=== PATIENT | female | born 1990 | race Two or more races ===

== ENCOUNTER 2019-05-05 20:18 | Emergency (ER) | payer OTHER ==
[~2019-05-05] VITALS: Ht 157.5 cm; Wt 79.4 kg
--- NOTE | 2019-05-05 20:22 | NUR ---
pt bibfamily for l side cp; pt aaox4, -sob, nad noted, vss, pt to bed 5, pending md figueroa
[2019-05-05 20:58] LABS: BASOPHILS % (AUTO) 0.4 % (0.0-2.0); EOSINOPHILS % (AUTO) 0.2 % (0.0-6.0); HEMATOCRIT 43 % (33-45); HEMOGLOBIN 14.6 g/dL (11.5-14.8); LYMPHOCYTES # (AUTO) 2.4 /CMM (0.8-4.8); LYMPHOCYTES % (AUTO) 23.7 % (20.0-44.0); MEAN CORPUSCULAR HGB CONC 34 g/dl (31.0-36.0); MEAN CORPUSCULAR VOLUME 82 fL (82-100); MONOCYTES # (AUTO) 0.5 /CMM (0.1-1.30); MONOCYTES % (AUTO) 5.2 % (2.0-12.0); NEUTROPHILS # (AUTO) 7.2 /CMM (1.8-8.9); NEUTROPHILS % (AUTO) 70.5 % (43.0-81.0); PLATELET COUNT (AUTO) 235 /CMM (150-450); RED BLOOD CELL COUNT(AUTO) 5.27 MIL/uL (4.0-5.2); WHITE BLOOD COUNT (AUTO) 10.2 K/uL (4.3-11.0)
[2019-05-05] MEDS ORDERED: IV NS 0.9% 500 ML BAG IV ONE (21:00)
[2019-05-05 21:07] LABS: CALCIUM, SERUM 9.7 mg/dL (8.5-10.1); CARBON DIOXIDE 29 mmol/L (21-32); CHLORIDE 103 mmol/L (98-107); CREATININE 0.7 mg/dL (0.6-1.3); GLUCOSE 106 mg/dL (74-106); POTASSIUM 3.6 mmol/L (3.5-5.1); SODIUM SERUM 142 mmol/L (136-145); UREA NITROGEN, BLOOD 5 mg/dL (7-18)
[2019-05-05 21:19] LABS: B-TYPE NATRIURETIC PEPTIDE 28 PG/ML (0-125)
[2019-05-05 21:29] LABS: D-DIMER 0.19 mg/L(FEU (0.17-0.50)
[2019-05-05 21:31] VITALS: BP 136/86
--- NOTE | 2019-05-05 22:05 | NUR ---
Patient discharged to home in stable condition. Written and verbal after care instructions given. Patient verbalizes understanding of instruction. IV removed. Catheter intact and site benign. Pressure and 4x4 applied to site. No bleeding noted.
== END 2019-05-05 22:12 | disposition home or self-care (01) ==
LOC: ER 20:23
DX: R07.89 Other chest pain (principal); R00.0 Tachycardia, unspecified
CPT/HCPCS: 36415; 71045-TC; 80048-TC; 83880; 84484-TC; 85025-TC; 85378-TC; 85730-TC